=== PATIENT | female | born 1945 | race Caucasian/White ===

== ENCOUNTER 2023-09-05 09:00 | Outpatient (REF) | payer SELFPAY ==
[2023-09-05 13:45] LABS: Anion Gap 15 (12-20); Blood Urea Nitrogen 30 mg/dL (9-16); Calcium 9.4 mg/dL (8.4-10.2); Carbon Dioxide 25 mmol/L (22-29); Chloride 106 mmol/L (96-108); Estimated Glomerular Filt Rate 42; Glucose Random 76 mg/dL (60-115); Potassium 3.8 mmol/L (3.3-5.1); Sodium 142 mmol/L (135-145)
== END 2023-09-05 09:01 | disposition home or self-care (01) ==
LOC: HO.HVNA 09:00
PROVIDERS: Visit Provider Nurse Practitioner Family
DX: I50.20 Unspecified systolic (congestive) heart failure (principal)
CPT/HCPCS: 36415; 80048